=== PATIENT | male | born 1980 | race Caucasian/White ===

== ENCOUNTER 2017-02-17 10:14 | Emergency (ER) | payer OTHER, MEDICARE ==
[2017-02-17] MEDS ORDERED: diphenhydrAMINE 50 MG/ML SDV IVPUSH ONE (10:59)
[2017-02-17] MEDS ORDERED: HYDROmorphone 1 MG/ML Syringe IVPUSH ONE ×2 (10:59→11:31)
[2017-02-17] MEDS ORDERED: Ondansetron 4 MG/2 ML SDV IVPUSH ONE (10:59)
[2017-02-17] MEDS ORDERED: HYDROmorphone 1 MG/ML Syringe ONE (11:30)
--- NOTE | 2017-02-17 11:30 | EDM.PDOC ---
ED HPI GENERAL MEDICAL PROBLEM - General Chief Complaint: Cardiovascular Problem Stated Complaint: shortness of breath Time Seen by Provider: 02/17/17 10:59 Source of Information: Reports: Patient History Limitations: Reports: No Limitations - History of Present Illness INITIAL COMMENTS - FREE TEXT/NARRATIVE: Patient is a 36-year-old gentleman who presents emergency Department this morning with a complaint of right sided chest pain. He said this is progressively becoming worse last few days. He was seen in [place] 2 weeks ago for similar complaint. Was found at that time to have small right basilar effusion as well as scant left basilar effusion. No thoracentesis was performed at that time. Does have a history of thoracentesis for pleural effusions in the past. Patient has end-stage renal disease and is on dialysis Monday, Monday and Monday. Scheduled for dialysis at 1330 today. Patient denies fever, nausea, vomiting, abdominal pain, flank pain, or extremity edema. Dialysis performed through left upper extremity AV fistula. Duration: Day(s): Location: Reports: Chest Quality: Reports: Ache Severity: Mild Improves with: Reports: None Worsens with: Reports: Other (cough) Associated Symptoms: Reports: Chest Pain, Shortness of Breath. Denies: Fever/ Chills R chest Pain Score (Numeric/FACES): 8 - Related Data Allergies Allergy/AdvReac Type Severity Reaction Status Date / Time No Known Allergies Allergy Verified 02/17/17 10:35 Home Meds: Home Meds Amitriptyline [Elavil] 50 mg PO BEDTIME 03/30/14 [History] Gabapentin 700 mg PO DAILY 03/30/14 [History] HYDROmorphone [Dilaudid] 4 mg PO Q6HR PRN 03/30/14 [History] Diazepam [Valium] 5 mg PO BID PRN 01/26/16 [History] Fluconazole [Diflucan] 200 mg PO DAILY 01/26/16 [History] Insulin Pump Syringe, 1.8 mL [Thinset] 1 unit SQ DAILY 01/26/16 [History] Lipase/Protease/Amylase [[place] Dr 36,000 Units Capsule] 2 cap PO QID 01/26/16 [ History] Melatonin 3 mg PO BEDTIME PRN 01/26/16 [History] Pantoprazole [ProTONIX] 40 mg PO DAILY 01/26/16 [History] Sodium Bicarbonate 2 tab PO TID 01/26/16 [History] Tacrolimus [Prograf] 0.5 mg PO BID 01/26/16 [History] Ursodiol 300 mg PO TID 01/26/16 [History] cycloSPORINE [Restasis] 1 drop OP BID 01/26/16 [History] hydrOXYzine HCl [Atarax] 25 mg PO BID PRN 01/26/16 [History] Furosemide [Lasix] 80 mg PO DAILY 02/17/17 [History] Past Medical History HEENT History: Reports: Impaired Vision, Other (See Below) Other HEENT History: Soft contacts and glasses Cardiovascular History: Reports: Blood Clots/VTE/DVT, Hypertension, Other (See Below) Other Cardiovascular History: DVT of the hepatic artery in 2012 Respiratory History: Reports: Intubation, Previous, Other (See Below) Other Respiratory History: Intubation with previous liver transplant and frequently since then for outpatient cholangiograms currently on a every eight- week basis Gastrointestinal History: Reports: Bowel Obstruction, Cholelithiasis, Gastritis , GERD, GI Bleed, Hepatitis, Jaundice, PUD, Other (See Below) Other Gastrointestinal History: 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, status post cholecystectomy with previous recurrent bowel obstructions prior to his cholecystectomy, upper GI bleed secondary to gastric bleed with last episode in about 2013 and previous history of recurrent GI bleeds including esophageal varices and splenomegaly secondary to his portal hypertension, benign gastric polyps, chronic ventral abdominal hernia Genitourinary History: Reports: Chronic Renal Insuffiency, Diabetic Nephropathy , Hydronephrosis, Renal Calculus, Other (See Below) Other Genitourinary History: Stage IV renal failure secondary to his diabetes and hepatic disease with patient awaiting renal transplant, recurrent bilateral urolithiasis initially in his early 20s with last episode at age 34 with spontaneous passage with all of his episodes Musculoskeletal History: Reports: Arthritis, Back Pain, Chronic, Fracture, Neck Pain, Chronic, Osteoarthritis, Other (See Below) Other Musculoskeletal History: Right wrist fracture at age 28, generalized myalgias secondary to renal insufficiency Neurological History: Reports: Neuropathy, Diabetic, Neuropathy, Peripheral Psychiatric History: Reports: Addiction, Anxiety, Depression, Other (See Below) Other Psychiatric History: chronic narcotic use Endocrine/Metabolic History: Reports: Diabetes, Type I, IDDM, Other (See Below) Other Endocrine/Metabolic History: TypeI IDDM since age 19 with current insulin pump therapy Hematologic History: Reports: Anemia, Blood Transfusion(s), Iron Deficiency, Other (See Below) Other Hematologic History: Multiple blood transfusions in the past secondary to recurrent GI bleeds as above, pancytopenia Immunologic History: Reports: Immunosuppression, Solid Organ Transplant, Other ( See Below) Other Immunologic History: Status post liver transplant Oncologic (Cancer) History: Reports: None. 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 difficile last in 2013 with history of stool transplants x3 - Past Surgical History GI Surgical History: Reports: Abdominal paracentesis, Cholecystectomy, Colonoscopy, EGD, Other (See Below) Male Surgical History: Reports: Circumcision, Other (See Below) Musculoskeletal Surgical History: Reports: ORIF, Other (See Below) Dermatological Surgical History: Reports: Skin Biopsy, Other (See Below) - Past Imaging History Past Imaging History: Reports: Cardiac Echo, CAT Scan, MRI, Stress Testing Social & Family History - Family History HEENT: Reports: Allergic Rhinitis, Other (See Below) Other HEENT Family History: Sister with allergic rhinitis Cardiac: Reports: Hypertension, Other (See Below) Other Cardiac Family History: Father with hypertension Respiratory: Reports: None. Denies: Asthma, COPD, PE, Sleep Apnea GI: Reports: None. Denies: Celiac Disease, Cholelithiasis, Chronic Diarrhea, Cirrhosis, Colon Polyps, Hepatitis, Inflammatory Bowel Disease, Irritable Bowel Syndrome : Reports: None. Denies: Dialysis, Renal Calculus, Renal Disease/ Insufficiency OBGYN: Reports: None. Denies: Dysfunctional uterine bleeding, Endometriosis, Recurrent Spontaneous Musculoskeletal: Reports: None. Denies: Gout, RA, SLE Neurological: Reports: None. Denies: Alzheimers Disease, Cerebral Aneurysms, CVA, Dementia, Parkinson's, Seizure, TIA Psychiatric: Reports: Anxiety, Depression, Other (See Below) Other Psychiatric Family History: Father with anxiety depression disorder Endocrine/Metabolic: Reports: Hypothyroidism, Other (See Below) Other Endocrine/Metabolic Family History: mother with hypothyroidism Hematologic: Reports: None. Denies: Anemia, Transfusion Reaction Immunologic: Reports: None. Denies: AIDS, HIV, SLE, Solid Organ Transplant Dermatologic: Reports: None. Denies: Eczema, Psoriasis Oncologic: Reports: None. Denies: Colon, Hodgkin's Lymphoma, Leukemia, Liver, Lymphoma, Non-Hodgkin's Lymphoma, Prostate, Skin - Tobacco Use Smoking Status *Q: Never Smoker Used Tobacco, but Quit: No Second Hand Smoke Exposure: No - Caffeine Use Caffeine Use: Reports: Coffee, Soda. Denies: Energy Drinks, Tea Caffeine Use Comment: 1-2 cups of either coffee or soda per day - Alcohol Use Days Per Week of Alcohol Use: 0 Number of Drinks Per Day: 0 Total Drinks Per Week: 0 - Recreational Drug Use Recreational Drug Use: No Drug Use in Last 12 Months: No - Living Situation & Occupation Living situation: Reports: Single, Other Occupation: Employed ED ROS GENERAL - Review of Systems Review Of Systems: ROS reveals no pertinent complaints other than HPI. Constitutional: Reports: No Symptoms HEENT: Reports: No Symptoms Respiratory: Reports: Shortness of Breath Cardiovascular: Reports: No Symptoms Endocrine: Reports: No Symptoms GI/Abdominal: Reports: No Symptoms : Reports: No Symptoms Musculoskeletal: Reports: No Symptoms Skin: Reports: No Symptoms Neurological: Reports: No Symptoms Psychiatric: Reports: No Symptoms Hematologic/Lymphatic: Reports: No Symptoms Immunologic: Reports: No Symptoms ED EXAM, GENERAL - Physical Exam Exam: See Below Exam Limited By: No Limitations General Appearance: Alert, WD/WN, No Apparent Distress Nose: Normal Inspection, No Blood Throat/Mouth: Normal Inspection, No Airway Compromise Head: Atraumatic, Normocephalic Neck: Normal Inspection, Supple Respiratory/Chest: No Respiratory Distress, Decreased Breath Sounds (right basilar), Rales (bibasilar) Cardiovascular: Regular Rate, Rhythm, No Murmur GI/Abdominal: Normal Bowel Sounds, Soft, Non-Tender Back Exam: Normal Inspection. No: CVA Tenderness (L), CVA Tenderness (R) Extremities: Normal Inspection, No Pedal Edema Neurological: Alert, Oriented, Normal Cognition Psychiatric: Normal Affect, Normal Mood Skin Exam: Warm, Dry, Intact, Normal Color, No Rash Course - Vital Signs Last Recorded V/S: Last Vital Signs Temp 98.3 F 02/17/17 10:45 Pulse 98 02/17/17 10:45 Resp 16 02/17/17 10:45 BP 140/79 02/17/17 10:45 Pulse Ox 98 02/17/17 10:45 - Orders/Labs/Meds Orders: Active Orders 24 hr Category Date Time Status CXR [Chest 2V] [CR] Stat Exams 02/17/17 10:40 Ordered CBC WITH AUTO DIFF [HEME] Stat Lab 02/17/17 10:41 Ordered CMP [COMPREHENSIVE METABOLIC PN,CMP] [CHEM] Stat Lab 02/17/17 10:41 Ordered Meds: Medications Discontinued Medications Generic Name Dose Route Start Last Admin Trade Name Freq PRN Reason Stop Dose Admin Diphenhydramine HCl 25 mg 02/17/17 10:59 02/17/17 11:10 Benadryl IVPUSH 02/17/17 11:00 25 mg ONETIME ONE Administration Hydromorphone HCl 1 mg 02/17/17 10:59 02/17/17 11:05 Dilaudid IVPUSH 02/17/17 11:00 1 mg ONETIME ONE Administration Ondansetron HCl 4 mg 02/17/17 10:59 02/17/17 11:03 Zofran IVPUSH 02/17/17 11:00 4 mg ONETIME ONE Administration - Re-Assessments/Exams Free Text/Narrative Re-Assessment/Exam: 02/17/17 12:09 Patient afebrile, nontoxic appearing, vital signs stable, pain mostly relieved with Dilaudid. Patient will be leaving the ER and going directly to dialysis in [facility]. Patient will follow-up with his primary care doctor in [place] on Monday. Departure - Departure Time of Disposition: 12:10 Disposition: Home, Self-Care 01 Condition: Fair Clinical Impression: End stage renal disease on dialysis, Recurrent right pleural effusion Instructions: End-Stage Kidney Disease, Pleural Effusion Referrals: PCP,Not In Area [Primary Care Provider] - Additional Instructions: Follow-up at dialysis today as scheduled. Follow up with the primary care doctor and for referral on Monday. Return to a local ER if symptoms continue. - My Orders Last 24 Hours: My Active Orders 02/17/17 10:40 CXR [Chest 2V] [CR] Stat 02/17/17 10:41 CBC WITH AUTO DIFF [HEME] Stat CMP [COMPREHENSIVE METABOLIC PN,CMP] [CHEM] Stat - Assessment/Plan Last 24 Hours: My Active Orders 02/17/17 10:40 CXR [Chest 2V] [CR] Stat 02/17/17 10:41 CBC WITH AUTO DIFF [HEME] Stat CMP [COMPREHENSIVE METABOLIC PN,CMP] [CHEM] Stat Assessment:: End-stage renal disease on dialysis. Right basilar pleural effusion. Plan: Dialysis schedule for today. Patient will follow up with PCP on Monday.
[2017-02-17 11:37] VITALS: BP 140/79
== END 2017-02-17 12:20 | disposition home or self-care (01) ==
LOC: KA.ED 10:14
DX: J90 Pleural effusion, not elsewhere classified (principal); I12.0 Hypertensive chronic kidney disease with stage 5 chronic kidney disease or end stage renal disease; E10.22 Type 1 diabetes mellitus with diabetic chronic kidney disease; N18.6 End stage renal disease; E10.42 Type 1 diabetes mellitus with diabetic polyneuropathy; E10.21 Type 1 diabetes mellitus with diabetic nephropathy; F32.9 Major depressive disorder, single episode, unspecified; Z94.4 Liver transplant status; Z79.4 Long term (current) use of insulin; Z79.899 Other long term (current) drug therapy
CPT/HCPCS: 36415; 71020; 80053; 85025; 96374; 96375; 99284; J1170; J1200; J2405

== ENCOUNTER 2017-03-27 03:04 | Emergency (ER) | payer MEDICARE, OTHER ==
[2017-03-27 03:27] VITALS: BP 141/86
--- NOTE | 2017-03-27 03:41 | EDM.PDOC ---
ED HPI GENERAL MEDICAL PROBLEM - General Chief Complaint: General Stated Complaint: shortness ofbreath Time Seen by Provider: 03/27/17 03:33 Source of Information: Reports: Patient History Limitations: Reports: No Limitations - History of Present Illness INITIAL COMMENTS - FREE TEXT/NARRATIVE: Patient is a 36-year-old gentleman who presents to the emergency department this morning with a complaint of left-sided rib pain. Patient states that he sustained left rib fractures while coughing 2 weeks ago and had a coughing spell during night and now has pain again. Denies fall or injury. Patient takes Dilaudid by mouth for pain when necessary at home and last time he took pain medicine was at 1700 yesterday. Patient states that that medicine really doesn't work and was looking for something stronger. Patient denies fever, trauma, chest pain, nausea or vomiting. Onset: Gradual Duration: Chronic Location: Reports: Chest Quality: Reports: Ache Severity: Mild Improves with: Reports: None Worsens with: Reports: Breathing, Movement Context: Reports: Other (While coughing). Denies: Trauma Associated Symptoms: Reports: Cough. 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 (see below) (Dilaudid po) Left Pain Score (Numeric/FACES): 8 - Related Data Allergies Allergy/AdvReac Type Severity Reaction Status Date / Time No Known Allergies Allergy Verified 03/27/17 03:18 Home Meds: Home Meds Amitriptyline [Elavil] 50 mg PO BEDTIME 03/30/14 [History] Gabapentin 700 mg PO DAILY 03/30/14 [History] HYDROmorphone [Dilaudid] 4 mg PO Q6HR PRN 03/30/14 [History] Diazepam [Valium] 5 mg PO BID PRN 01/26/16 [History] Fluconazole [Diflucan] 200 mg PO DAILY 01/26/16 [History] Insulin Pump Syringe, 1.8 mL [Thinset] 1 unit SQ DAILY 01/26/16 [History] Lipase/Protease/Amylase [[place] Dr 36,000 Units Capsule] 2 cap PO QID 01/26/16 [ History] Melatonin 3 mg PO BEDTIME PRN 01/26/16 [History] Pantoprazole [ProTONIX] 40 mg PO DAILY 01/26/16 [History] Sodium Bicarbonate 2 tab PO TID 01/26/16 [History] Tacrolimus [Prograf] 0.5 mg PO BID 01/26/16 [History] Ursodiol 300 mg PO TID 01/26/16 [History] cycloSPORINE [Restasis] 1 drop OP BID 01/26/16 [History] hydrOXYzine HCl [Atarax] 25 mg PO BID PRN 01/26/16 [History] Furosemide [Lasix] 80 mg PO DAILY 02/17/17 [History] Past Medical History HEENT History: Reports: Impaired Vision, Other (See Below) Other HEENT History: Soft contacts and glasses Cardiovascular History: Reports: Blood Clots/VTE/DVT, Hypertension, Other (See Below) Other Cardiovascular History: DVT of the hepatic artery in 2012 Respiratory History: Reports: Intubation, Previous, Other (See Below) Other Respiratory History: Intubation with previous liver transplant and frequently since then for outpatient cholangiograms currently on a every eight- week basis Gastrointestinal History: Reports: Bowel Obstruction, Cholelithiasis, Gastritis , GERD, GI Bleed, Hepatitis, Jaundice, PUD, Other (See Below) Other Gastrointestinal History: 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, status post cholecystectomy with previous recurrent bowel obstructions prior to his cholecystectomy, upper GI bleed secondary to gastric bleed with last episode in about 2013 and previous history of recurrent GI bleeds including esophageal varices and splenomegaly secondary to his portal hypertension, benign gastric polyps, chronic ventral abdominal hernia Genitourinary History: Reports: Chronic Renal Insuffiency, Diabetic Nephropathy , Hydronephrosis, Renal Calculus, Other (See Below) Other Genitourinary History: Stage IV renal failure secondary to his diabetes and hepatic disease with patient awaiting renal transplant, recurrent bilateral urolithiasis initially in his early 20s with last episode at age 34 with spontaneous passage with all of his episodes Musculoskeletal History: Reports: Arthritis, Back Pain, Chronic, Fracture, Neck Pain, Chronic, Osteoarthritis, Other (See Below) Other Musculoskeletal History: Right wrist fracture at age 28, generalized myalgias secondary to renal insufficiency Neurological History: Reports: Neuropathy, Diabetic, Neuropathy, Peripheral Psychiatric History: Reports: Addiction, Anxiety, Depression, Other (See Below) Other Psychiatric History: chronic narcotic use Endocrine/Metabolic History: Reports: Diabetes, Type I, IDDM, Other (See Below) Other Endocrine/Metabolic History: TypeI IDDM since age 19 with current insulin pump therapy Hematologic History: Reports: Anemia, Blood Transfusion(s), Iron Deficiency, Other (See Below) Other Hematologic History: Multiple blood transfusions in the past secondary to recurrent GI bleeds as above, pancytopenia Immunologic History: Reports: Immunosuppression, Solid Organ Transplant, Other ( See Below) Other Immunologic History: Status post liver transplant Oncologic (Cancer) History: Reports: None. 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 difficile last in 2013 with history of stool transplants x3 - Past Surgical History GI Surgical History: Reports: Abdominal paracentesis, Cholecystectomy, Colonoscopy, EGD, Other (See Below) Male Surgical History: Reports: Circumcision, Other (See Below) Musculoskeletal Surgical History: Reports: ORIF, Other (See Below) Dermatological Surgical History: Reports: Skin Biopsy, Other (See Below) - Past Imaging History Past Imaging History: Reports: Cardiac Echo, CAT Scan, MRI, Stress Testing Social & Family History - Family History HEENT: Reports: Allergic Rhinitis, Other (See Below) Other HEENT Family History: Sister with allergic rhinitis Cardiac: Reports: Hypertension, Other (See Below) Other Cardiac Family History: Father with hypertension Respiratory: Reports: None. Denies: Asthma, COPD, PE, Sleep Apnea GI: Reports: None. Denies: Celiac Disease, Cholelithiasis, Chronic Diarrhea, Cirrhosis, Colon Polyps, Hepatitis, Inflammatory Bowel Disease, Irritable Bowel Syndrome : Reports: None. Denies: Dialysis, Renal Calculus, Renal Disease/ Insufficiency OBGYN: Reports: None. Denies: Dysfunctional uterine bleeding, Endometriosis, Recurrent Spontaneous Musculoskeletal: Reports: None. Denies: Gout, RA, SLE Neurological: Reports: None. Denies: Alzheimers Disease, Cerebral Aneurysms, CVA, Dementia, Parkinson's, Seizure, TIA Psychiatric: Reports: Anxiety, Depression, Other (See Below) Other Psychiatric Family History: Father with anxiety depression disorder Endocrine/Metabolic: Reports: Hypothyroidism, Other (See Below) Other Endocrine/Metabolic Family History: mother with hypothyroidism Hematologic: Reports: None. Denies: Anemia, Transfusion Reaction Immunologic: Reports: None. Denies: AIDS, HIV, SLE, Solid Organ Transplant Dermatologic: Reports: None. Denies: Eczema, Psoriasis Oncologic: Reports: None. Denies: Colon, Hodgkin's Lymphoma, Leukemia, Liver, Lymphoma, Non-Hodgkin's Lymphoma, Prostate, Skin - Tobacco Use Smoking Status *Q: Never Smoker Used Tobacco, but Quit: No Second Hand Smoke Exposure: No - Caffeine Use Caffeine Use: Reports: Coffee, Soda. Denies: Energy Drinks, Tea Caffeine Use Comment: 1-2 cups of either coffee or soda per day - Alcohol Use Days Per Week of Alcohol Use: 0 Number of Drinks Per Day: 0 Total Drinks Per Week: 0 - Recreational Drug Use Recreational Drug Use: No Drug Use in Last 12 Months: No - Living Situation & Occupation Living situation: Reports: Single, Other Occupation: Employed ED ROS GENERAL - Review of Systems Review Of Systems: ROS reveals no pertinent complaints other than HPI. Constitutional: Reports: No Symptoms HEENT: Reports: No Symptoms Respiratory: Reports: Pleuritic Chest Pain, Cough Cardiovascular: Reports: No Symptoms Endocrine: Reports: No Symptoms GI/Abdominal: Reports: No Symptoms : Reports: No Symptoms Musculoskeletal: Reports: No Symptoms Skin: Reports: No Symptoms Neurological: Reports: No Symptoms Psychiatric: Reports: No Symptoms Hematologic/Lymphatic: Reports: No Symptoms Immunologic: Reports: No Symptoms ED EXAM, GENERAL - Physical Exam Exam: See Below Exam Limited By: No Limitations General Appearance: Alert, WD/WN, Mild Distress Nose: Normal Inspection, Normal Mucosa, No Blood Throat/Mouth: Normal Inspection, Normal Oropharynx, No Airway Compromise Head: Atraumatic, Normocephalic Neck: Normal Inspection Respiratory/Chest: No Respiratory Distress, Lungs Clear, Decreased Breath Sounds (Bibasilar), Other (. No ecchymosis, crepitus, or flail chest noted.). No: No Accessory Muscle Use, Respiratory Distress Cardiovascular: Regular Rate, Rhythm, No Murmur GI/Abdominal: Non-Tender, Distended Extremities: Normal Inspection Neurological: Alert, Oriented, Normal Cognition Psychiatric: Normal Affect, Normal Mood Skin Exam: Warm, Dry, Intact, Normal Color, No Rash Course - Vital Signs Last Recorded V/S: Last Vital Signs Temp 98.3 F 03/27/17 03:22 Pulse 98 03/27/17 03:22 Resp 20 03/27/17 03:22 BP 141/86 H 03/27/17 03:22 Pulse Ox 96 03/27/17 03:22 - Orders/Labs/Meds Orders: Active Orders 24 hr Category Date Time Status Ribs 2V w Chest Lt [CR] Stat Exams 03/27/17 03:27 Ordered - Radiology Interpretation Free Text/Narrative:: Chest x-ray and left ribs shows persistent right basilar pleural effusion, but no rib fractures. - Re-Assessments/Exams Free Text/Narrative Re-Assessment/Exam: 03/27/17 04:00 Patient afebrile, nontoxic appearing, vital signs stable. Pt will follow-up at [facility] on Monday. Departure - Departure Time of Disposition: 04:01 Disposition: Home, Self-Care 01 Condition: Fair Clinical Impression: End stage renal disease on dialysis, Rib pain on left side, Drug-seeking behavior, Pleural effusion on right - Discharge Information Instructions: Pleural Effusion, Costochondritis, [id number], Chronic Kidney Disease, [id number] Additional Instructions: Follow-up at [facility] on Monday. Return to emergency department sooner if symptoms continue or worsen. - My Orders Last 24 Hours: My Active Orders 03/27/17 03:27 Ribs 2V w Chest Lt [CR] Stat - Assessment/Plan Last 24 Hours: My Active Orders 03/27/17 03:27 Ribs 2V w Chest Lt [CR] Stat Assessment:: Chronic pain Plan: Follow-up at [facility]
== END 2017-03-27 04:10 | disposition home or self-care (01) ==
LOC: KA.ED 03:04
DX: J90 Pleural effusion, not elsewhere classified (principal); Z76.5 Malingerer [conscious simulation]; I12.0 Hypertensive chronic kidney disease with stage 5 chronic kidney disease or end stage renal disease; E10.22 Type 1 diabetes mellitus with diabetic chronic kidney disease; E10.42 Type 1 diabetes mellitus with diabetic polyneuropathy; N18.6 End stage renal disease; F32.9 Major depressive disorder, single episode, unspecified; Z79.4 Long term (current) use of insulin; Z79.899 Other long term (current) drug therapy
CPT/HCPCS: 71101-LT; 99283